=== PATIENT | female | born 2000 | race Caucasian/White ===

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

== ENCOUNTER 2020-01-08 14:55 | Emergency (ER) | payer OTHER ==
[2020-01-08] MEDS ORDERED: ONDANSETRON INJ 4 MG/2 ML VIAL IV ONE (15:40)
[2020-01-08] MEDS ORDERED: SODIUM CHLORIDE 0.9% 1000ML 1,000 ML IVS ONE (15:40)
[2020-01-08] MEDS ORDERED: SODIUM CHLORIDE 0.9% (FLUSH) 10 ML SYG IV PRN (15:40)
[2020-01-08] MEDS ORDERED: IBUPROFEN 200 MG TAB PO ONE (16:18)
[2020-01-08] MEDS ORDERED: MAGNESIUM SULFATE INJ 1 GM in SODIUM CHLORIDE 0.9% 100ML 100 ML IVPB ONE (17:32)
[2020-01-08] MEDS ORDERED: KETOROLAC TROMETHAMINE INJ 30 MG/ML VIAL IV ONE (17:32)
[2020-01-08] MEDS ORDERED: PROCHLORPERAZINE INJ 10 MG/2 ML VIAL IV ONE (17:32)
[2020-01-08] MEDS ORDERED: MAGNESIUM SULFATE PREMIX 2GM 50 ML IVPB ONE (17:42)
--- NOTE | 2020-01-08 18:49 | ED.PDOC ---
History of Present Illness - General Chief Complaint: Fever Stated Complaint: fever, nausea/vomiting Time Seen by Provider: 01/08/20 16:35 Source: patient, RN notes reviewed, Vital Signs reviewed, family - Mother Exam Limitations: no limitations - History of Present Illness Initial Comments: Patient is a 19-year-old female who presents with complaints of headache, nausea, vomiting and low-grade fevers. Patient has been down at school and returned home secondary to her illness. Patient was tested for COVID at school but that result has not come back yet. Patient is also complaining of stiff neck. Her headache is throbbing in nature. Worse with movement or lights. Nothing seems to make it better. There is no radiation of the pain. Timing/Duration: getting worse, other - A couple of days Severity: moderate Improving Factors: nothing Worsening Factors: other - Photophobia Associated Symptoms: headaches, malaise, nausea/vomiting - Nausea, weakness - Generalized Allergies/Adverse Reactions: Allergies NO KNOWN ALLERGY Allergy (Verified 04/25/17 13:33) Home Medications: Ambulatory Orders Azithromycin 500 mg PO DAILY #5 tab 04/25/17 Cefdinir 300 mg PO BID #10 capsule 01/08/20 Ondansetron [Ondansetron Odt] 4 mg PO Q6H #12 tab 01/08/20 Review of Systems - Review of Systems Constitutional: States: see HPI, chills, fever - Low-grade, malaise, weakness EENTM: States: see HPI, eye pain. Denies: blurred vision, double vision, nose pain, nose congestion, throat pain Respiratory: States: no symptoms reported. Denies: cough, short of breath, stridor, wheezing Cardiology: States: no symptoms reported. Denies: chest pain, palpitations, syncope Gastrointestinal/Abdominal: States: see HPI, nausea, vomiting. Denies: abdominal pain, diarrhea Genitourinary: States: no symptoms reported. Denies: discharge, dysuria Musculoskeletal: States: see HPI, neck pain. Denies: back pain Skin: States: no symptoms reported Neurological: States: see HPI, headache, weakness. Denies: numbness, paresthesia, tingling, tremors Endocrine: States: no symptoms reported Hematologic/Lymphatic: States: no symptoms reported All other Systems: Reviewed and Negative Past Medical History (General) - Patient Medical History Hx Seizures: No Hx Asthma: No Hx Congestive Heart Failure: No Hx Diabetes: No Surgical History: no surgical history - Vaccination History Hx Tetanus, Diphtheria Vaccination: Yes Hx Influenza Vaccination: No Hx Pneumococcal Vaccination: No - Social History Hx Alcohol Use: No Hx Substance Use: No Hx Substance Use Treatment: No Hx Depression: No - Activities of Daily Living Hospice Agency (if applicable):: None - Female History Patient is a Female of Child Bearing Age (10 -59 yrs old): Yes Family Medical History - Family History Mother Family History: No Known Living Status: Still Living Physical Exam - Physical Exam General Appearance: Alert, Anxious, Obvious distress, Well Developed, Well Groomed, Well Hydrated, Well Nourished Eye Exam: bilateral normal Ears, Nose, Throat: hearing grossly normal, normal ENT inspection, normal pharynx - Except dry mucous membranes Neck: non-tender, limited range of motion - Patient complains of pain with movement of the neck. Respiratory: chest non-tender, lungs clear, normal breath sounds, no respiratory distress, no accessory muscle use Cardiovascular/Chest: normal peripheral pulses, regular rate, rhythm, no edema, no gallop, no JVD, no murmur Peripheral Pulses: radial,right: 2+, radial,left: 2+ Gastrointestinal/Abdominal: normal bowel sounds, non tender, soft Back Exam: normal inspection, no CVA tenderness, no vertebral tenderness Extremity: normal range of motion, non-tender, normal inspection Neurologic: shank sorter II-XII nml as tested, no motor/sensory deficits, alert, normal mood/affect, oriented x 3 Skin Exam: normal color, warm/dry Lymphatic: no adenopathy Progress - Progress Progress: Differential diagnosis: COVID, UTI, gastroenteritis, infectious diarrhea among others. 01/08/20 18:57 Patient is improved slightly after IV fluids, IV pain medicines. She still has a headache and a stiff neck. Plan on lumbar puncture at this time for further evaluation for meningitis. I discussed this with the mother and the patient and they voiced understanding and agreement. 01/08/20 20:20 Attempted LP without success. Patient does have a UTI for which she is being treated with IV antibiotics and then will discharge home with prescription for p.o. antibiotics. Additionally, will discharge patient home with a prescription for some pain medicine and some Zofran. Patient states she is feeling much better than when she came in. I did discuss this plan of care with the mother and the patient and they voiced understanding and agreement. Vincent Becerra M.D. #[id number] - Results/Orders Results/Orders: 01/08/20 15:40 IV Care:Saline Lock per Protoc QSHIFT Sodium Chloride 0.9% (Flush) [Saline Flush Syringe] 10 ml IV PRN PRN Laboratory Results - last 24 hr 01/08/20 01/08/20 01/08/20 14:00 14:00 14:00 WBC 7.1 RBC 4.40 Hgb 13.9 Hct 39.4 MCV 89.6 MCH 31.7 H MCHC 35.4 RDW 12.8 Plt Count 234 MPV 8.0 Absolute Neuts (auto) 5.90 Absolute Lymphs (auto) 0.60 L Absolute Monos (auto) 0.60 Absolute Eos (auto) 0.00 Absolute Basos (auto) 0.00 Neutrophils % 83.5 H Lymphocytes % 8.5 L Monocytes % 7.9 Eosinophils % 0.0 L Basophils % 0.1 Sodium 130 L Potassium 3.9 Chloride 92 L Carbon Dioxide 24 Anion Gap 17.9 BUN 18 Creatinine 1.28 BUN/Creatinine Ratio 14.1 Random Glucose 93 Serum Osmolality 262.4 L Calcium 8.9 Lipase 34 Serum HCG, Qual Urine Color Urine Appearance Urine pH Ur Specific [place] Urine Protein Urine Glucose (UA) Urine Ketones Urine Blood Urine Nitrite Urine Bilirubin Urine Urobilinogen Ur Leukocyte Esterase Urine RBC Urine WBC Ur Epithelial Cells Amorphous Sediment Urine Bacteria Urine Mucus 01/08/20 01/08/20 14:00 18:04 WBC RBC Hgb Hct MCV MCH MCHC RDW Plt Count MPV Absolute Neuts (auto) Absolute Lymphs (auto) Absolute Monos (auto) Absolute Eos (auto) Absolute Basos (auto) Neutrophils % Lymphocytes % Monocytes % Eosinophils % Basophils % Sodium Potassium Chloride Carbon Dioxide Anion Gap BUN Creatinine BUN/Creatinine Ratio Random Glucose Serum Osmolality Calcium Lipase Serum HCG, Qual Negative Urine Color Yellow Urine Appearance Cloudy Urine pH 5.5 Ur Specific [place] 1.025 Urine Protein 100 H Urine Glucose (UA) Negative Urine Ketones 40 H Urine Blood Trace-lysed H Urine Nitrite Negative Urine Bilirubin Small H Urine Urobilinogen 0.2 Ur Leukocyte Esterase Negative Urine RBC 1-3 Urine WBC 3-5 H Ur Epithelial Cells 3-5 Amorphous Sediment 3+ Urine Bacteria 1+ Urine Mucus Large Procedures - Additional Procedures Additional Procedures: lumbar puncture - Patient with continued headache. Neck stiffness is improved. Therefore, plan for lumbar puncture. Informed consent was obtained from the patient. Risks and benefits of the procedure were explained. Patient voiced understanding and agreement with the plan of care. Patient was placed in a sitting position, lumbar area was cleaned with Betadine. 1% lidocaine with epinephrine, 5 mL's, was infused to the health for 5. 18- gauge lumbar puncture needle used to attempt cannulation of the spinal canal. Unable to obtain any fluid. Patient requested procedure to be stopped. There were no complications. Estimated blood loss less than 1 mL. Back was cleaned with Betadine and Band-Aid was applied. Departure - Departure Clinical Impression: Dehydration UTI (urinary tract infection) Qualifiers: Urinary tract infection type: acute cystitis Hematuria presence: without hemat uria Qualified Code(s): N30.00 - Acute cystitis without hematuria Headache Qualifiers: Headache type: unspecified Headache chronicity pattern: acute headache Intractability: not intractable Qualified Code(s): R51 - Headache Nausea and vomiting Qualifiers: Vomiting type: unspecified Vomiting Intractability: non-intractable Qualified Code(s): R11.2 - Nausea with vomiting, unspecified Time of Disposition: 20:24 Disposition: Discharge to Home or Self Care Condition: Fair Departure Forms: ED Discharge - Pt. Copy, Patient Portal Self Enrollment Instructions: DI for Fever (Symptom) -- Adult, Dehydration, Adult (DC), Urinary Tract Infection, Adult (DC), Headache, Adult (DC) Diet: resume usual diet Activity: increase activity as tolerated Prescriptions: Cefdinir 300 mg PO BID #10 capsule Ondansetron [Ondansetron Odt] 4 mg PO Q6H #12 tab Home Medications: Ambulatory Orders Azithromycin 500 mg PO DAILY #5 tab 04/25/17 Cefdinir 300 mg PO BID #10 capsule 01/08/20 Ondansetron [Ondansetron Odt] 4 mg PO Q6H #12 tab 01/08/20
[2020-01-08] MEDS ORDERED: LIDOCAINE 1% W/ EPINEPHRINE 20 ML VIAL INJ ONE (19:27)
[2020-01-08] MEDS ORDERED: cefTRIAXone SODIUM 1 GM in SODIUM CHL 0.9% 50ML MIN-BAG+ 50 ML IVPB ONE (19:55)
[2020-01-08] MEDS ORDERED: MORPHINE SULFATE INJ 10 MG/ML VIAL IV ONE (20:03)
[2020-01-08] MEDS ORDERED: cefTRIAXone SODIUM 1 GM VIAL ONE (20:22)
[2020-01-08] MEDS ORDERED: LIDOCAINE 1% 2 ML VIAL INJ ONE (20:23)
[2020-01-08] MEDS ORDERED: MORPHINE SULFATE INJ 10 MG/ML VIAL ONE (20:23)
[2020-01-08] MEDS ORDERED: ACETAMINOPHEN W/COD #3 TAB (ER Disp) PO ONE (20:45)
[2020-01-08] MEDS ORDERED: cefTRIAXone SODIUM 1 GM VIAL IM ONE (22:27)
[2020-01-08] MEDS ORDERED: MORPHINE SULFATE INJ 10 MG/ML VIAL IM ONE (22:27)
[2020-01-09 00:25] VITALS: BP 115/81; TEMP 97.5; O2SAT 95
== END 2020-01-08 21:10 | disposition home or self-care (01) ==
LOC: ER 14:55
DX: E86.0 Dehydration (principal); N30.00 Acute cystitis without hematuria; R51 Headache; R11.2 Nausea with vomiting, unspecified; R50.9 Fever, unspecified
CPT/HCPCS: 36415; 80048; 81001; 83690; 84703; 85025; 87040; A4216; J0696; J0780; J1885; J2270; J2405; J3475; J7030